=== PATIENT | male | born 1930 | race Caucasian/White ===

== ENCOUNTER 2021-01-25 08:29 | Outpatient (CLI) | payer MEDICARE | END 2021-01-25 08:30 | disposition home or self-care (01) | LOC: MADULT 08:29 | PROVIDERS: ATTEND Family Medicine | DX: N18.30 Chronic kidney disease, stage 3 unspecified (principal) | CPT/HCPCS: 76770 ==

== ENCOUNTER 2021-03-04 11:22 | Emergency (ER) | payer MEDICARE | END 2021-03-04 12:23 | disposition home or self-care (01) | LOC: MADERS 11:22 | DX: H10.33 Unspecified acute conjunctivitis, bilateral (principal); I25.10 Atherosclerotic heart disease of native coronary artery without angina pectoris; I10 Essential (primary) hypertension; Z79.84 Long term (current) use of oral hypoglycemic drugs; Z79.899 Other long term (current) drug therapy; Z79.82 Long term (current) use of aspirin | CPT/HCPCS: 99282 ==